=== PATIENT | male | born 1975 | race Caucasian/White ===

== ENCOUNTER 2018-01-02 12:46 | Emergency (ER) | payer OTHER ==
[2018-01-02 12:54] VITALS: BP 131/80; PULSE 72; TEMP 98; BMI 28.5
[2018-01-02] MEDS ORDERED: DIPHTH,PERTUSS(ACELL),TET 0.5 ML DISP.SYRIN IM ONE (13:20)
--- NOTE | 2018-01-02 13:26 | PDOC ---
History of Present Illness - General Chief Complaint: Injury Stated Complaint: INJURY Time Seen by Provider: 01/02/18 13:12 History Source: Patient Exam Limitations: No Limitations - History of Present Illness Initial Comments: 01/02/18 13:22 42 yr male with c/o laceration to the left lower leg at work today. Pt states he ran into a tree stump. Past History - Past Medical History Allergies/Adverse Reactions: Allergies Allergy/AdvReac Type Severity Reaction Status Date / Time No Known Allergies Allergy Verified 01/02/18 12:54 Home Medications: Ambulatory Orders Cephalexin [Keflex] 500 mg PO TID #21 capsule 10/20/13 Naproxen [Naprosyn -] 500 mg PO BID #30 tablet 10/20/13 No Home Medications 0 dose .ROUTE UTDICT 10/20/13 Cardiac Disorders: (mvp) COPD: No - Suicide/Smoking/Psychosocial Hx Smoking Status: No Smoking History: Never smoked Number of Cigarettes Smoked Daily: 0 Hx Alcohol Use: No Substance Use Type: None *Physical Exam - Vital Signs Last Vital Signs Temp Pulse Resp BP Pulse Ox 98 F 72 18 131/80 98 01/02/18 12:51 01/02/18 12:51 01/02/18 12:51 01/02/18 12:51 01/02/18 12:51 - Physical Exam General Appearance: Yes: Nourished, Appropriately Dressed HEENT: positive: EOMI, [place] Neck: positive: Supple Lymphatic: negative: Adenopathy Musculoskeletal: positive: Normal Inspection Extremity: positive: Other (left lower corral with 3cm superficial abrasion) Integumentary: positive: Normal Color, Dry, Warm, Other Neurologic: positive: Fully Oriented, Alert, Normal Mood/Affect, Normal Response , Motor Strength 5/5 Procedures - Laceration/Wound Repair Left Distal Leg Wound Length: 2.6 to 5.0 cm Wound Explored: clean Wound's Depth, Shape: superficial, linear Betadine Prep: Yes Sterile Dressing Applied: Yes (bacitracin and bandage placed ) Medical Decision Making - Medical Decision Making 01/02/18 13:30 cc: ran into tree stump caused lac to left lower leg no deformity , pt ambulating will give tetanus wound care dc inst given *DC/Admit/Observation/Transfer Diagnosis at time of Disposition: Laceration - Discharge Dispostion Disposition: HOME Condition at time of disposition: Improved - Referrals - Patient Instructions Additional Instructions: keep clean and dry apply ice every 2hrs for 15 minutes for the next 2 days while awake take ibuprofen if needed for pain wash with soap and water apply bacitracin and cover with bandaid daily until healed - Post Discharge Activity Forms/Work/School Notes: Back to Work
== END 2018-01-02 13:43 | disposition home or self-care (01) ==
LOC: JERFT 12:46
PROC: 3E0234Z Introduction of Serum, Toxoid and Vaccine into Muscle, Percutaneous Approach (ICD-10-PCS; principal; 2018-01-02)
DX: S81.812A Laceration without foreign body, left lower leg, initial encounter (principal); W22.09XA Striking against other stationary object, initial encounter; Y93.89 Activity, other specified; Y92.89 Other specified places as the place of occurrence of the external cause; Y99.0 Civilian activity done for income or pay
CPT/HCPCS: 90715; 99281-25

== ENCOUNTER 2022-09-05 18:00 | Emergency (ER) | payer OTHER ==
[2022-09-05 18:12] VITALS: BP 134/88; PULSE 78; RESP 16; TEMP 98; BMI 29.8
[2022-09-05] MEDS ORDERED: predniSONE 20 MG TABLET (UD) PO ONE (18:39)
== END 2022-09-05 19:02 | disposition home or self-care (01) ==
LOC: JERFT 18:00
DX: L23.7 Allergic contact dermatitis due to plants, except food (principal); R21 Rash and other nonspecific skin eruption; H01.113 Allergic dermatitis of right eye, unspecified eyelid; H01.116 Allergic dermatitis of left eye, unspecified eyelid
CPT/HCPCS: 99283-25